=== PATIENT | male | born 1960 | race Caucasian/White ===

== ENCOUNTER 2019-12-12 13:45 | Outpatient (CLI) | payer BC, SELFPAY ==
--- NOTE | ~2019-12-12 | US_ITS ---
EXAMINATION: US art doppler w press MARIBELL LLANOS EXAM DATE: 12/12/2019 14:33 INDICATION: Peripheral arterial disease. Angioplasty, right stent. TECHNIQUE: Segmental pressures and plethysmographic and Doppler waveforms of the brachial and lower e xtremity arteries were obtained. Comparison is made to prior examination from 06/29/2018. FINDINGS: Right and left brachial artery pressures of 124 mm Hg and 137 mm Hg, respectively, are concordant (no rmal difference <= 30 mmHg). RIGHT LEG: The ankle-brachial index (CRISTIAN) is 0.69 (normal >= 0.9-1). The great toe-brachial index (TBI) is 0.53 (normal >= 0.65). The lower extremity ratios, segmental pressure gradients as follows; Proximal superficial femoral artery:- Stent ( mmHg). Distal superficial femoral artery: ----- Stent ( mmHg). Popliteal: 0.81 (111 mmHg). Dorsalis pedis: 0.58 (79 mmHg). Posterior tibial: 0.69 (95 mmHg). (Normal gradients <= 20-30 mmHg between adjacent levels on the same leg or the same levels on the two legs). Arterial waveforms are monophasic. LEFT LEG: The ankle-brachial index (CRISTIAN) is 1.09 (normal >= 0.9-1). The great toe-brachial index (TBI) is 0.71 (normal >= 0.65). The lower extremity ratios, segmental pressure gradients as follows; Proximal superficial femoral artery:- 1.45 (199 mmHg). Distal superficial femoral artery: ----- 1.15 (158 mmHg). Popliteal: 1.27 (174 mmHg). Dorsalis pedis: 1.07 (147 mmHg). Posterior tibial: 1.09 (149 mmHg). (Normal gradients <= 20-30 mmHg between adjacent levels on the same leg or the same levels on the two legs). Arterial waveforms are biphasic superficial femoral and com mon femoral, monophasic below. IMPRESSION: 1. Right ankle-brachial index 0.69, mild to moderately decreased. 2. Left ankle-brachial index 1.09, normal. 3. Segmental pressures as above. Reviewed, dictated and finalized at location A.
== END 2019-12-12 13:46 | disposition home or self-care (01) ==
PROVIDERS: PCP Family Medicine; Visit Provider Internal Medicine Cardiovascular Disease
DX: I73.9 Peripheral vascular disease, unspecified (principal); Z95.820 Peripheral vascular angioplasty status with implants and grafts
CPT/HCPCS: 93923

== ENCOUNTER 2020-07-20 07:18 | Outpatient (CLI) | payer BC, SELFPAY ==
--- NOTE | ~2020-07-20 | CT_ITS ---
EXAMINATION:CT lung screening DATE: 07/20/2020 07:41 INDICATION: Personal history of tobacco use. Smoker quit 6 years ago with 80 pack year history. TECHNIQUE: Computed tomography (CT) of the chest was performed without intravenous contrast. Automate d exposure control and iterative reconstruction technique were employed. The dose-length product (DLP ) was 384.83 mGy-cm. COMPARISON: Chest CT 04/19/2018 FINDINGS: There is mild emphysema. There is mild atelectasis bilaterally. Calcified bilateral lung no dules are consistent with old granulomatous disease. Again seen is a 4 mm nodule in left lower lobe. No pleural effusion. The heart size is normal. There are coronary artery calcifications. No pericardi al effusion. There is diffuse hepatic steatosis. There is mild thoracic spondylosis. IMPRESSION: 1. Lung-RADS category 2: Benign appearance or behavior. Continue annual screening with noncontrast lo w-dose chest CT in 12 months. Reviewed, dictated and finalized at location B. [employer] IMPRESSION: 1. Lung-RADS category 2: Benign appearance or behavior. Continue annual screeni ng with noncontrast low-dose chest CT in 12 months.
== END 2020-07-20 07:19 | disposition home or self-care (01) ==
PROVIDERS: PCP Family Medicine; Visit Provider Family Medicine
DX: Z87.891 Personal history of nicotine dependence (principal)
CPT/HCPCS: G0297

== ENCOUNTER 2020-12-13 13:51 | Outpatient (CLI) | payer BC, SELFPAY ==
--- NOTE | ~2020-12-13 | US_ITS ---
EXAMINATION: US art doppler w martha MEJIA EXAM DATE: 12/13/2020 14:46 INDICATION: Peripheral arterial disease. S/P angioplasty with stent. TECHNIQUE: Segmental pressures and plethysmographic and Doppler waveforms of the brachial and lower e xtremity arteries were obtained. Comparison is made to prior examination from 12/12/2019. FINDINGS: Right and left brachial artery pressures of 121 mm Hg and 138 mm Hg, respectively, are concordant (no rmal difference <= 30 mmHg). RIGHT LEG: The ankle-brachial index (CRISTIAN) is 0.67 (normal >= 0.9-1). The great toe-brachial index (TBI) is 0.48 (normal >= 0.65). The lower extremity ratios, segmental pressure gradients as follows; Dorsalis pedis: 0.59 (81 mmHg). Posterior tibial: 0.67 (93 mmHg). (Normal gradients <= 20-30 mmHg between adjacent levels on the same leg or the same levels on the two legs). Arterial waveforms are biphasic common femoral, monophasic below. LEFT LEG: The ankle-brachial index (CRISTIAN) is 1.01 (normal >= 0.9-1). The great toe-brachial index (TBI) is 0.77 (normal >= 0.65). The lower extremity ratios, segmental pressure gradients as follows; Dorsalis pedis: 124 (1.01 mmHg). Posterior tibial: 1.01 (140 mmHg). (Normal gradients <= 20-30 mmHg between adjacent levels on the same leg or the same levels on the two legs). Arterial waveforms are biphasic. IMPRESSION: 1. Right ankle-brachial index 0.67, mild to moderately decreased. 2. Left ankle-brachial index 1.01, normal. 3. Segmental pressures as above. Reviewed, dictated and finalized at location B.
== END 2020-12-13 13:52 | disposition home or self-care (01) ==
PROVIDERS: PCP Family Medicine; Visit Provider Internal Medicine Cardiovascular Disease
DX: I73.9 Peripheral vascular disease, unspecified (principal); Z95.820 Peripheral vascular angioplasty status with implants and grafts
CPT/HCPCS: 93923

== ENCOUNTER 2021-12-18 13:57 | Outpatient (CLI) | payer BC, SELFPAY ==
--- NOTE | ~2021-12-18 | US_ITS ---
US art doppler w press LE BI INDICATION: Peripheral arterial disease. Status post angioplasty. TECHNIQUE: Segmental pressures and plethysmographic and Doppler waveforms of the brachial and lower e xtremity arteries were obtained. COMPARISON: 12/13/2020. FINDINGS: Right and left brachial artery pressures of 113 mm Hg and 119 mm Hg, respectively, are concordant (no rmal difference <= 30 mmHg). The right ankle-brachial index (CRISTIAN) is 0.68 (normal >= 0.9-1.0). The right great toe-brachial index (TBI) is 0.63 (normal >= 0.60). The left CRISTIAN is 1.03. The left TBI is 0.79. IMPRESSION: 1. Right CRISTIAN below normal limits consistent with mild peripheral arterial disease. Reviewed, dictated and finalized at location A. IMPRESSION: 1. Right CRISTIAN below normal limits consistent with mild peripheral arterial disea se.
== END 2021-12-18 13:58 | disposition home or self-care (01) ==
PROVIDERS: PCP Family Medicine; Visit Provider Internal Medicine Cardiovascular Disease
DX: I73.9 Peripheral vascular disease, unspecified (principal); Z98.890 Other specified postprocedural states; Z95.5 Presence of coronary angioplasty implant and graft
CPT/HCPCS: 93923

== ENCOUNTER 2022-07-21 00:09 | Day surgery (SDC) | payer BC, SELFPAY ==
--- NOTE | 2022-07-18 15:50 | PM.HPGS ---
History of Present Illness History of Present Illness Consent: Risks, benefits, and alternatives have been discussed and questions answered. Patient agrees to proceed with procedure. Chief complaint: neoplasm screening and hx of colon polyps Narrative: Marleen Tadeo is a 61 year old male Referred for colonoscopy. He had multiple serrated adenomas and tubular adenomas removed about 3 years ago. Review of Systems Review of Systems: All systems reviewed & are unremarkable except as noted in HPI and below PMFSH Past Medical History Medical History Anxiety Chronic anticoagulation Essential hypertension Former smoker Other pulmonary embolism without acute cor pulmonale Peripheral vascular disease, unspecified Type 2 diabetes mellitus without complications Family History Family History Mother Family history of malignant neoplasm Social History Social History Smoking packs per day: 2 Smoking cigarettes per day: 40.0 Years smoked: 40 Smoking pack-years: 80.00 Smoking status: Former smoker Tobacco type: cigarettes Second hand tobacco smoke exposure: No Smoking end date: 08/10/12 Alcohol intake: current Drinks per week: 38 Alcohol use details: BEERS Substance use: never Substance use type: does not use Living arrangements: with family Gender identity (if verbalized by the patient): Male Spiritual care concerns: No Meds Home Medications and Allergies Home Medications Medication Instructions Recorded Confirmed Type aspirin 81 mg chewable tablet 81 mg PO DAILY 06/23/19 07/15/22 History atorvastatin 10 mg tablet 10 mg PO DAILY 06/23/19 07/15/22 History blood sugar diagnostic (Contour #10 ea 06/23/19 History Next Test Strips) blood-glucose meter (Contour Next #1 ea 06/23/19 History Meter) lancets #50 ea 06/23/19 History losartan 100 mg tablet (Cozaar) 100 mg PO DAILY #90 tabs 08/24/19 07/15/22 Rx amlodipine 10 mg tablet (Norvasc) 10 mg PO DAILY #90 tabs 09/05/19 07/15/22 Rx apixaban 5 mg tablet (Eliquis) 5 mg PO BID #60 tabs 09/05/19 07/21/22 Rx metformin 500 mg tablet,extended 1,000 mg PO DAILY #60 tabs 09/05/19 07/15/22 Rx release 24 hr sertraline 50 mg tablet 50 mg PO DAILY 07/15/22 07/15/22 History Allergies Allergy/AdvReac Type Severity Reaction Status Date / Time No Known Allergies Allergy Verified 07/21/22 07:17 Exam Const: General: alert Orientation/consciousness: patient oriented x3 Resp: Auscultation: clear to auscultation bilaterally Cardio: Rhythm: regular rhythm GI: GI Palp: Yes Soft to palpation and No Tenderness to palpation present (GI) Neuro: General: patient oriented x3 Assessment and Plan Assessment and plan (1) Colon cancer screening: Code(s): Z12.11 - Encounter for screening for malignant neoplasm of colon Status: Acute Assessment and Plan: Colonoscopy with possible biopsy or polypectomy or cautery or injection of substances.
[2022-07-21 07:19] VITALS: BP 149/77; PULSE 92; RESP 19; TEMP 36.5; O2SAT 98
[2022-07-21] MEDS: LACTATED RINGERS 1,000 ML 150 ML IV CONT (07:29)
[2022-07-21 07:31] LABS: Glucose Point of Care 107 mg/dl (65-105)
--- NOTE | 2022-07-21 08:07 | P.PNAN_ITS ---
Anes - Eval Pre Procedure Procedure: Operation Date: 07/21/22 08:30 Proposed Procedures p Screening Colonoscopy - Bebeto Moya MD Date/Time: 07/21/22 08:07 Pre Op Diagnosis: neoplasm screening and hx of colon polyps Patient Data Age: 61 Gender: M Height: 1.78 m Weight: 93.2 kg Last Vital Signs Temp 36.5 C 07/21/22 07:19 Pulse 92 07/21/22 07:19 Resp 19 07/21/22 07:19 BP 149/77 H 07/21/22 07:19 Pulse Ox 98 07/21/22 07:19 O2 Del Method Room Air 07/21/22 07:19 Allergies Allergy/AdvReac Type Severity Reaction Status Date / Time No Known Allergies Allergy Verified 07/21/22 07:17 Home Medications Medication Instructions Recorded Confirmed Type aspirin 81 mg chewable tablet 81 mg PO DAILY 06/23/19 07/15/22 History atorvastatin 10 mg tablet 10 mg PO DAILY 06/23/19 07/15/22 History blood sugar diagnostic (Contour #10 ea 06/23/19 History Next Test Strips) blood-glucose meter (Contour Next #1 ea 06/23/19 History Meter) lancets #50 ea 06/23/19 History losartan 100 mg tablet (Cozaar) 100 mg PO DAILY #90 tabs 08/24/19 07/15/22 Rx amlodipine 10 mg tablet (Norvasc) 10 mg PO DAILY #90 tabs 09/05/19 07/15/22 Rx apixaban 5 mg tablet (Eliquis) 5 mg PO BID #60 tabs 09/05/19 07/21/22 Rx metformin 500 mg tablet,extended 1,000 mg PO DAILY #60 tabs 09/05/19 07/15/22 Rx release 24 hr sertraline 50 mg tablet 50 mg PO DAILY 07/15/22 07/15/22 History Laboratory Tests 07/21/22 07:28 POC Capillary Glucose 107 mg/dl H mg/dl (65-105) Patient hx anesthesia problems: none Family hx anesthesia problems: none Results Review: All pre-operative results and documents have been reviewed as part of the pre- operative evaluation. [facility] Past Medical History Medical History Anxiety Chronic anticoagulation Essential hypertension Former smoker Other pulmonary embolism without acute cor pulmonale Peripheral vascular disease, unspecified Type 2 diabetes mellitus without complications Family History Family History Mother Family history of malignant neoplasm Social History Social History Smoking packs per day: 2 Smoking cigarettes per day: 40.0 Years smoked: 40 Smoking pack-years: 80.00 Smoking status: Former smoker Tobacco type: cigarettes Second hand tobacco smoke exposure: No Smoking end date: 08/10/12 Alcohol intake: current Drinks per week: 38 Alcohol use details: BEERS Substance use: never Substance use type: does not use Living arrangements: with family Gender identity (if verbalized by the patient): Male Spiritual care concerns: No Exam Day of Procedure 07/21/22 08:07
--- NOTE | 2022-07-21 08:11 | WPDANESEPPF ---
Anes - Initial Pre Proc Eval Procedure: Operation Date: 07/21/22 08:30 Proposed Procedures p Screening Colonoscopy - Bebeto Moya MD Date/Time: 07/21/22 08:11 Surgeon: Bebeto Moya MD Pre Op Diagnosis: neoplasm screening and hx of colon polyps Patient Data Age: 61 Gender: M Height: 1.78 m Weight: 93.2 kg Last Vital Signs Temp 97.7 F 07/21/22 07:19 Pulse 92 07/21/22 07:19 Resp 19 07/21/22 07:19 BP 149/77 H 07/21/22 07:19 Pulse Ox 98 07/21/22 07:19 O2 Del Method Room Air 07/21/22 07:19 Allergies Allergy/AdvReac Type Severity Reaction Status Date / Time No Known Allergies Allergy Verified 07/21/22 07:17 Home Medications Medication Instructions Recorded Confirmed Type aspirin 81 mg chewable tablet 81 mg PO DAILY 06/23/19 07/15/22 History atorvastatin 10 mg tablet 10 mg PO DAILY 06/23/19 07/15/22 History blood sugar diagnostic (Contour #10 ea 06/23/19 History Next Test Strips) blood-glucose meter (Contour Next #1 ea 06/23/19 History Meter) lancets #50 ea 06/23/19 History losartan 100 mg tablet (Cozaar) 100 mg PO DAILY #90 tabs 08/24/19 07/15/22 Rx amlodipine 10 mg tablet (Norvasc) 10 mg PO DAILY #90 tabs 09/05/19 07/15/22 Rx apixaban 5 mg tablet (Eliquis) 5 mg PO BID #60 tabs 09/05/19 07/21/22 Rx metformin 500 mg tablet,extended 1,000 mg PO DAILY #60 tabs 09/05/19 07/15/22 Rx release 24 hr sertraline 50 mg tablet 50 mg PO DAILY 07/15/22 07/15/22 History Laboratory Tests 07/21/22 07:28 POC Capillary Glucose 107 mg/dl H mg/dl (65-105) Patient hx anesthesia problems: none Family hx anesthesia problems: none Results Review: All pre-operative results and documents have been reviewed as part of the pre-operative evaluation. [facility] Past Medical History Medical History Anxiety Chronic anticoagulation Essential hypertension Former smoker Other pulmonary embolism without acute cor pulmonale Peripheral vascular disease, unspecified Type 2 diabetes mellitus without complications Family History Family History Mother Family history of malignant neoplasm Social History Social History Smoking packs per day: 2 Smoking cigarettes per day: 40.0 Years smoked: 40 Smoking pack-years: 80.00 Smoking status: Former smoker Tobacco type: cigarettes Second hand tobacco smoke exposure: No Smoking end date: 08/10/12 Alcohol intake: current Drinks per week: 38 Alcohol use details: BEERS Substance use: never Substance use type: does not use Living arrangements: with family Gender identity (if verbalized by the patient): Male Spiritual care concerns: No Anes - Eval Final PreProcedure Day of Procedure 07/21/22 08:11 Patient weight: normal Heart: regular rate and rhythm Lungs: clear to auscultation Airway: Mallampati scale class II Neurological: alert and oriented Last oral intake: >/= 8 hours ASA classification: III Emergent: no Anesthetic plan: proceed Anesthesia type and monitoring: general GIVS and standard monitoring Results Review: All pre-operative results and documents have been reviewed as part of the pre-operative evaluation. Informed Consent: The patient's anesthetic plan and its attendant risks and benefits were discussed with the patient/family/POA. Questions were solicited and answers provided to the satisfaction of the patient/family/POA.
[2022-07-21] MEDS: SIMETHICONE ORAL SUSPENSION 20 MG/0.3 ML 30 ML BOTTLE 0.6 ML IRRIGATION (08:20)
[2022-07-21 08:33] VITALS: BP 91/62; PULSE 69; RESP 17; O2SAT 96
[2022-07-21 08:43] VITALS: BP 106/75; PULSE 66; RESP 20; O2SAT 96
[2022-07-21 08:53] VITALS: BP 119/78; PULSE 57; RESP 17; O2SAT 98
== END 2022-07-21 09:03 | disposition home or self-care (01) ==
PROVIDERS: PCP Family Medicine; Visit Provider Internal Medicine Gastroenterology
PROC: 0DJD8ZZ Inspection of Lower Intestinal Tract, Via Natural or Artificial Opening Endoscopic (ICD-10-PCS; CPT 45378; principal; 2022-07-21 08:30)
DX: Z12.11 Encounter for screening for malignant neoplasm of colon (principal); K57.30 Diverticulosis of large intestine without perforation or abscess without bleeding; D12.4 Benign neoplasm of descending colon; D12.5 Benign neoplasm of sigmoid colon; I10 Essential (primary) hypertension; E11.51 Type 2 diabetes mellitus with diabetic peripheral angiopathy without gangrene; Z86.711 Personal history of pulmonary embolism; F41.9 Anxiety disorder, unspecified; Z87.891 Personal history of nicotine dependence; Z79.82 Long term (current) use of aspirin; Z79.84 Long term (current) use of oral hypoglycemic drugs; Z79.01 Long term (current) use of anticoagulants
CPT/HCPCS: 45385; 45380; 82948; 88305; J2704; J7120